=== PATIENT | male | born 1950 | race Caucasian/White ===

== ENCOUNTER → 2019-03-20 | Day surgery (SDC) | payer MEDICARE, BC ==
[~2019-03-20] MED LIST: AMLO5TAB10 PO; ASPI-630 PO; IV RINGERS,LACTATED 1000ML 1,000 ML IV ONE; LIDOCAINE 2% PF 5 ML VIAL. ONE; PROPOFOL 40 ML IV ONE
[2019-03-20 08:04] VITALS: BP 117/91
--- NOTE | 2019-03-22 08:45 | PATHOLOGY ---
[facility] Accession Number: [id number] . 01 Material submitted: . esophagus - DISTAL ESOPHAGUS BX. Modifiers: distal . 01 Clinical history: . Pre-OP DX: Reflux, Hx polyps Post-OP DX: Rule out Xiao's . 02 Diagnosis: Esophageal biopsies, distal esophagus: - Segments of hyperplastic squamous esophageal mucosa and esophagogastric/gastric mucosa showing acute and moderate chronic inflammation, consistent with reflux esophagitis. (JPM:delroy; 03/21/2019) QMS/03/21/2019 . 02 Comment: Sections of the distal esophageal biopsy reveal segments of tangentially oriented hyperplastic squamous esophageal mucosa, in addition to segments of esophagogastric and gastric mucosa showing acute and moderate chronic inflammation. The findings are consistent with reflux esophagitis. There is no evidence of Xiao's change, dysplasia, or malignancy. (JPM:delroy 03/21/2019) . 02 Electronically signed: . Santana Perera MD, Pathologist NPI- [id number] . 01 Gross description: . Received in formalin labeled "Adarsh Aguilar, distal esophagus BX," are multiple segments of porter soft tissue measuring 1.0 x 0.6 x 0.2 cm in aggregate dimensions and ranging from 0.3 to 0.8 cm in maximum dimension. The specimen is filtered and entirely submitted in cassette A1. (TSD; 03/20/2019) TOB/TOB . 02 Pathologist provided ICD-10: K20.8 . 02 CPT . 609307 Specimen Comment: A courtesy copy of this report has been sent to Specimen Comment: [phone], . Specimen Comment: Report sent to and Performed at: [address] [place] [address] [address], [place], [place] [id number] MD Cyril Oscar MD Phone: [phone] Performed at: [address] [id number] MD Santana Perera MD Phone: [phone]
== END ==
LOC: SURG 06:24
PROVIDERS: ATTEND Internal Medicine Gastroenterology
DX: K21.0 Gastro-esophageal reflux disease with esophagitis (principal); K57.30 Diverticulosis of large intestine without perforation or abscess without bleeding; K64.0 First degree hemorrhoids; F15.90 Other stimulant use, unspecified, uncomplicated; Z88.0 Allergy status to penicillin; Z86.010 Personal history of colon polyps; Z72.89 Other problems related to lifestyle; Z79.82 Long term (current) use of aspirin; Z98.890 Other specified postprocedural states
CPT/HCPCS: 43239; 45378; 88305; J2001; J2704